=== PATIENT | male | born 1945 | race Caucasian/White ===

== ENCOUNTER → 2021-11-10 | Outpatient (CLI) | payer MEDICARE ==
[~2021-11-10] MED LIST: ASPIRIN EC81 MG PO; BUPRENORPHIN-N1 EACH SL; CRESTOR20 MG PO; FLONASE 0.05% N16 GM; GABAPENTIN800 MG PO; HYDRALAZINE HCL50 MG PO; IBU800 MG PO; LASIX TAB 20 MG20 MG PO; LEVOTHYROXINE75 MCG PO; LISINOPRIL-HCT1 EAC1 PO; METOPROLOL SUCC50 MG PO; NORVASC10 MG PO; OXYCONTIN20 MG PO; POTASSIUM CHLO10 ME1 PO; PROVENTIL HFA6.7 GM INH; SINGULAIR10 MG PO
[2021-11-10 14:50] LABS: BUN/CREATININE RATIO 24 (0-10)
== END ==
LOC: LAB 13:47
PROVIDERS: Orthopaedic Surgery
DX: Z01.812 Encounter for preprocedural laboratory examination (principal); M17.12 Unilateral primary osteoarthritis, left knee
CPT/HCPCS: 36415; 80048; 86850; 86900; 86901

== ENCOUNTER → 2021-11-12 | Day surgery (SDC) | payer MEDICARE ==
[~2021-11-12] VITALS: Ht 177.8 cm; Wt 118.8 kg
== END | disposition home or self-care (01) ==
LOC: OR 04:21 → EDSTATUS 12:00
DX: M17.12 Unilateral primary osteoarthritis, left knee (principal); Z96.651 Presence of right artificial knee joint; I10 Essential (primary) hypertension; B19.20 Unspecified viral hepatitis C without hepatic coma; I25.10 Atherosclerotic heart disease of native coronary artery without angina pectoris; Z95.5 Presence of coronary angioplasty implant and graft; E78.5 Hyperlipidemia, unspecified; Z87.891 Personal history of nicotine dependence; E66.9 Obesity, unspecified; Z68.37 Body mass index [BMI] 37.0-37.9, adult; Z79.82 Long term (current) use of aspirin; Z79.899 Other long term (current) drug therapy
CPT/HCPCS: 73560; C1713; C1776; J0171; J0690; J0735; J1100; J1885; J2001; J2250; J2274; J2405; J2704; J2795; J3370; J7120

== ENCOUNTER → 2021-11-25 | Outpatient (CLI) | payer MEDICARE | LOC: US 14:30 | DX: M79.662 Pain in left lower leg (principal) | CPT/HCPCS: 93971 ==

== ENCOUNTER → 2022-04-16 | Outpatient (CLI) | payer MEDICARE | LOC: HEART 5 14:18 | DX: J44.9 Chronic obstructive pulmonary disease, unspecified (principal); R06.02 Shortness of breath | CPT/HCPCS: 94010 ==